=== PATIENT | male | born 1940 | race Two or more races ===

== ENCOUNTER 2021-04-19 12:42 | Emergency (ER) | payer OTHER ==
[~2021-04-19] VITALS: Ht 167.6 cm; Wt 125.6 kg
[2021-04-19] MEDS ORDERED: TOPROL XL200 MG (13:41)
[2021-04-19] MEDS ORDERED: WARFARIN SODIUM6 MG PO (13:41)
[2021-04-19] MEDS ORDERED: ATORVASTATIN CA40 MG PO (13:42)
[2021-04-19] MEDS ORDERED: ENTRESTO 49 MG1 EACH PO (13:42)
[2021-04-19] MEDS ORDERED: LASIX80 MG (13:42)
[2021-04-19] MEDS ORDERED: INSULIN PEN NE1 EAC2 (13:43)
== END 2021-04-19 16:57 | disposition home or self-care (01) ==
LOC: ER 12:42
DX: R25.2 Cramp and spasm (principal); E11.9 Type 2 diabetes mellitus without complications; Z79.4 Long term (current) use of insulin; I10 Essential (primary) hypertension

== ENCOUNTER 2022-01-22 10:48 | Inpatient (IN) | payer OTHER ==
[~2022-01-22] VITALS: Ht 152.4 cm; Wt 127.0 kg
[~2022-01-22 10:48] MED LIST: ATORVASTATIN CA40 MG PO; ENTRESTO 49 MG1 EACH PO; INSULIN PEN NE1 EAC2; LASIX80 MG; TOPROL XL200 MG; WARFARIN SODIUM6 MG PO
--- NOTE | 2022-01-22 11:26 | NUR ---
MASCULINO DE 81 ANOS VERBALIZA TENER SOB DESDE HACE UNAS SEMANAS. PTE SE OBSERVA CON LUL SAT DE 92% Y SE LE REALIZA EKG Y ES VERFICADO POR DRA LAUREN. PTE SE OBSERVA A/O X3.
--- NOTE | 2022-01-22 12:13 | NUR ---
SE RECIBE PACIENTE MASCULINO ALERTA Y ORIENTADO X3, SE COLOCA EN LA CAMA #2 CON BARRANADAS ELEVADAS. SE CONECTA A MONITOR CARDIACO, OXIMETRAI DE PULSO Y CANULA NASAL A 3LT/MIN. SE CANALIZA EN BRAZO DERECHO CON ANGIO #18 Y SE LE COLOCA S/L Y EN BARZO DERECHO CON ANGIO #20 Y SE LE COLOCA S/L PATENTES LIBRES DE EDEMA Y ENROJECIMIENTO. SE LE MERT LAS MUETRAS Y SE LE REALIZA PLACA PORTABLE JORDANA LAS ORDENES MEDICAS. SE OBSERVA POR CAMBIOS.
--- NOTE | 2022-01-22 13:30 | NUR ---
SE LE ORIENTA A PACIENTE SOBRE LAS ORDENES MEDICAS, REFIERE ENTEDER LAS MISMAS. SE LE INSERTA MOYA #16 CON MEDIDAS ASEPTICAS Y ESTERILES, SE OBSERVA ORINA COLOR AMARILLO HALIMA Y SE LE REALIZA MUSTRAS, SE LE ADMINISTRA MEDICAMENTO JORDANA LA ORDEN MEDICA.
== END 2022-02-19 02:12 | disposition expired | DRG 291 ==
LOC: ER 10:48 → ICU 18:10 → SEC-K 18:10 → SURH 23:55 → ICU 01-26 13:51
PROVIDERS: ADMIT Internal Medicine; ATTEND Internal Medicine
PROC: 4A12X4Z Monitoring of Cardiac Electrical Activity, External Approach (ICD-10-PCS; principal; 2022-01-22)
PROC: B24BYZZ Ultrasonography of Heart with Aorta using Other Contrast (ICD-10-PCS; 2022-01-22)
PROC: 02HV33Z Insertion of Infusion Device into Superior Vena Cava, Percutaneous Approach (ICD-10-PCS; 2022-01-26)
PROC: 5A09357 Assistance with Respiratory Ventilation, Less than 24 Consecutive Hours, Continuous Positive Airway Pressure (ICD-10-PCS; 2022-01-29)
PROC: 5A0955A Assistance with Respiratory Ventilation, Greater than 96 Consecutive Hours, High Flow/Velocity Cannula (ICD-10-PCS; 2022-01-30)
PROC: BW24ZZZ Computerized Tomography (CT Scan) of Chest and Abdomen (ICD-10-PCS; 2022-01-30)
PROC: B54DZZZ Ultrasonography of Bilateral Lower Extremity Veins (ICD-10-PCS; 2022-02-03)
PROC: CB121ZZ Planar Nuclear Medicine Imaging of Lungs and Bronchi using Technetium 99m (Tc-99m) (ICD-10-PCS; 2022-02-07)
PROC: BW24ZZZ Computerized Tomography (CT Scan) of Chest and Abdomen (ICD-10-PCS; 2022-02-09)
PROC: B24BYZZ Ultrasonography of Heart with Aorta using Other Contrast (ICD-10-PCS; 2022-02-10)
PROC: 05HY33Z Insertion of Infusion Device into Upper Vein, Percutaneous Approach (ICD-10-PCS; 2022-02-15)
PROC: 5A1D70Z Performance of Urinary Filtration, Intermittent, Less than 6 Hours Per Day (ICD-10-PCS; 2022-02-15)
PROC: 5A09457 Assistance with Respiratory Ventilation, 24-96 Consecutive Hours, Continuous Positive Airway Pressure (ICD-10-PCS; 2022-02-16)
PROC: 5A1D70Z Performance of Urinary Filtration, Intermittent, Less than 6 Hours Per Day (ICD-10-PCS; 2022-02-17)
DX: I13.0 Hypertensive heart and chronic kidney disease with heart failure and stage 1 through stage 4 chronic kidney disease, or unspecified chronic kidney disease (principal); I50.23 Acute on chronic systolic (congestive) heart failure; J96.01 Acute respiratory failure with hypoxia; N17.9 Acute kidney failure, unspecified; Z68.45 Body mass index [BMI] 70 or greater, adult; N39.0 Urinary tract infection, site not specified; E11.65 Type 2 diabetes mellitus with hyperglycemia; E87.5 Hyperkalemia; I48.91 Unspecified atrial fibrillation; I27.22 Pulmonary hypertension due to left heart disease; E11.22 Type 2 diabetes mellitus with diabetic chronic kidney disease; N18.9 Chronic kidney disease, unspecified; Z79.4 Long term (current) use of insulin; E66.09 Other obesity due to excess calories; Z66 Do not resuscitate; E87.70 Fluid overload, unspecified